=== PATIENT | male | born 1945 | race Caucasian/White ===

== ENCOUNTER 2022-04-05 06:06 | Emergency (ER) | payer MEDICARE ==
[~2022-04-05] VITALS: Ht 172.7 cm; Wt 108.9 kg
[~2022-04-05 06:06] MED LIST: ASPIR 8181 MG PO; ATORVASTATIN CA20 MG PO; CARVEDILOL25 MG PO; CLOPIDOGREL75 MG PO; CYANOCOBAL1000 MCG/1 SC; FLOMAX 0.4 MG0.4 MG PO; LISINOPRIL10 MG PO; METFORMIN HCL1000 MG PO; SIMVASTATIN10 MG PO
[2022-04-05 06:36] LABS: HEMOGLOBIN 13.9 gm/dl (14.0-17.5); RED BLOOD COUNT 5.21 M/UL (4.20-5.50); WHITE BLOOD COUNT 12.6 K/UL (4.5-11.0)
[2022-04-05 07:51] LABS: BUN/CREATININE RATIO 16 (0-10)
[2022-04-05] MEDS ORDERED: CLOPIDOGREL75 MG PO (10:57)
[2022-04-05] MEDS ORDERED: LANTUS SOL100 UNIT/1 SQ (10:58)
[2022-04-05] MEDS ORDERED: LINZESS72 MCG PO (10:58)
== END 2022-04-05 18:50 | disposition short-term general hospital (02) ==
LOC: ER1 06:06 → CDU 10:38
PROVIDERS: Physician Assistant
DX: I47.1 Supraventricular tachycardia (principal); I25.10 Atherosclerotic heart disease of native coronary artery without angina pectoris; G93.89 Other specified disorders of brain; I25.2 Old myocardial infarction; E11.9 Type 2 diabetes mellitus without complications; G47.33 Obstructive sleep apnea (adult) (pediatric); Z79.4 Long term (current) use of insulin; Z95.5 Presence of coronary angioplasty implant and graft; Z20.822 Contact with and (suspected) exposure to COVID-19
CPT/HCPCS: 0240U; 36600; 70450; 71045; 71250; 80053; 81001; 82550; 82553; 82803; 82962; 83735; 83880; 84439; 84443; 84484; 85025; 93005; 99285; J1100; J2405; Q9967

== ENCOUNTER 2022-04-20 17:51 | Emergency (ER) | payer MEDICARE ==
[~2022-04-20 17:51] MED LIST changes: +LANTUS SOL100 UNIT/1 SQ; +LINZESS72 MCG PO
[2022-04-20 18:46] LABS: HEMOGLOBIN 15.6 gm/dl (14.0-17.5); RED BLOOD COUNT 5.42 M/UL (4.20-5.50); WHITE BLOOD COUNT 20.5 K/UL (4.5-11.0)
== END 2022-04-20 20:48 | disposition short-term general hospital (02) ==
LOC: ER1 17:51
PROVIDERS: Physician Assistant
DX: G97.51 Postprocedural hemorrhage of a nervous system organ or structure following a nervous system procedure (principal); I51.9 Heart disease, unspecified; E11.9 Type 2 diabetes mellitus without complications; Z85.841 Personal history of malignant neoplasm of brain
CPT/HCPCS: 36600; 70450; 71045; 82803; 82962; 83605; 85025; 93005; 96374; 99285; J1953